=== PATIENT | female | born 1975 | race Caucasian/White ===

== ENCOUNTER 2018-11-24 10:14 | Day surgery (SDC) | payer BC ==
--- NOTE | 2018-11-24 09:20 | HP ---
DATE OF SURGERY: 11/24/2018 HISTORY OF PRESENT ILLNESS: The patient is a 43 year-old with problem with lower facial abscess along with some bad teeth. Now she had developed persistent cyst by her nose area unrelated to original infection when she was in the hospital. At this point she desires excision. She is not having any drainage. No redness. PAST MEDICAL HISTORY: Obesity, hypertension, deep venous thrombosis, pulmonary embolism, history of pancreatitis. PAST SURGICAL HISTORY: D&C. Cholecystectomy. ERCP. Ovarian cyst removal in the past. MEDICATIONS: Bactrim recently. Protonix, Allopurinol, Ventolin, lisinopril, Zofran, Bentyl, Coreg, cyclobenzaprine. ALLERGIES: CEFALEXIN. FAMILY HISTORY: Negative in regards to this problem. SOCIAL HISTORY: No smoking or alcohol abuse. REVIEW OF SYSTEMS: Twelve systems reviewed per admission assessment. No chest pain or palpitations other systems negative or noncontributory as above and per preadmission questionnaire. PHYSICAL EXAMINATION: GENERAL: No acute distress. HEENT: Sclerae nonicteric. NECK: No JVD. CHEST: Equal excursion, nonlabored breathing. CVS: Regular rate and rhythm. ABDOMEN: Soft. No peritoneal signs. EXTREMITIES: No significant edema. NEURO: Alert, oriented, moving extremities symmetrically. No gross motor deficits noted. HEENT: On the face on the right side of her nose she had indurated area consistent with possible inclusion cyst. IMPRESSION: I feel the patient will benefit from excisional biopsy of right face cyst or ruptured cyst site as an outpatient. She prefers to go ahead and have me proceed as I can get to it quicker than Dr. Urias can as she initially came in on his call today. General risk of bleeding or infection. The fact she would have a scar in the area, risk of some tear duct issues given the location in the right eye and possibly requiring other intervention. General risk of infection possibly requiring packing, the fact what we excise likely will not recur once she heals the wound but she could get similar cyst or nodule adjacent to or elsewhere on her body. She understands general risk of anesthesia, deep venous thrombosis, pulmonary embolism or pneumonia, risk of cardiopulmonary event but not limited to, will proceed with excisional biopsy of face cyst or ruptured cyst site as an outpatient.
[~2018-11-24 10:14] MED LIST: Lactated Ringers 0 ML IV ONE; Lactated Ringers 1,000 ML IV SCH; Sensorcaine 0.25% 10 ML ONE
[2018-11-24] MEDS ORDERED: BRIDION 200MG/2ML IV ONE (10:15)
[2018-11-24] MEDS ORDERED: SUBLIMAZE 100 MCG/2 ML IV ONE (10:15)
[2018-11-24] MEDS ORDERED: TORAdol 30 mg Injection IV ONE (10:15)
[2018-11-24] MEDS ORDERED: DIPRIVAN 200 MG/20 ML IV ONE (10:15)
[2018-11-24] MEDS ORDERED: Decadron 4 MG INJ IV ONE (10:15)
[2018-11-24] MEDS ORDERED: Zemuron 100 MG/10 ML IV ONE (10:15)
[2018-11-24] MEDS ORDERED: Quelicin Fliptop 200 MG/10 ML IV ONE (10:15)
[2018-11-24] MEDS ORDERED: Zofran 4 MG/2 ML VIAL IV ONE (10:15)
[2018-11-24] MEDS ORDERED: Lactated Ringers 1,000 ML IV ONE (10:46)
[2018-11-24] MEDS ORDERED: SUBLIMAZE 100 MCG/2 ML ONE (12:42)
[2018-11-24] MEDS ORDERED: NORCO 5/325 MG PO PRN (13:24)
[2018-11-24 14:05] VITALS: BP 169/96; PULSE 85; O2SAT 95
--- NOTE | 2018-11-25 07:41 | OP ---
SURGERY DATE/TIME: 11/24/2018 1200 PREOPERATIVE DIAGNOSIS: History of ruptured cyst site on the edge of the right nose and face area. POSTOPERATIVE DIAGNOSIS: History of ruptured cyst site on the edge of the right nose and face area. PROCEDURE: Excisional biopsy of ruptured cyst site right nose/face area with intermediate closure. SURGEON: Dr. Levon Currie. ANESTHESIA: General. ESTIMATED BLOOD LOSS: Minimal. INDICATIONS: As noted above. Risks and benefits explained in detail and not limited to and consent obtained. DESCRIPTION OF PROCEDURE AND FINDINGS: The patient is taken to the operating room. Site had been confirmed. She questioned a second area but I did not feel anything that warranted any surgical excision today. I felt she just had a boil in that area but nothing obvious. Site is then marked. Taken to the operating room. General anesthesia introduced. Her face, nose periorbital area were prepped and draped in usual sterile fashion. After official time out and no disagreement with planned procedure, marking out in spindle-shaped including small segment of skin dissection carried down circumferentially down to the underlying fascia and normal appearing subcutaneous fat and fascia. The specimen is passed off. It measured about 1 cm or so in size in vivo. The wound was carefully palpated. There was no visible or palpable other suspicious area of cyst at this time. Hemostasis controlled with some pinpoint, needlepoint cautery on a very low setting. Good hemostasis noted. The wound is then closed in intermediate fashion with interrupted 4-0 Vicryl in the subcu and deep dermis, skin closed with running 5-0 Prolene, some antibiotic ointment and sterile dressing applied. The patient tolerated the procedure well. There were no immediate complications. Findings were discussed with the family out in the waiting area.
== END 2018-11-24 14:25 | disposition home or self-care (01) ==
LOC: SDC 10:14
PROVIDERS: ATTEND Surgery
DX: J34.0 Abscess, furuncle and carbuncle of nose (principal); R23.8 Other skin changes
CPT/HCPCS: 84703; J0330; J1100; J1885; J2405; J2704; J3010; A9270-GY